=== PATIENT | male | born 1995 | race African-American/Black ===

== ENCOUNTER 2017-05-20 22:25 | Emergency (ER) | payer OTHER ==
[~2017-05-20] VITALS: Ht 160 cm; Wt 59.0 kg
[2017-05-20 22:45] VITALS: BP 115/78
[2017-05-20 23:20] VITALS: BP 115/78
--- NOTE | 2017-05-21 05:56 | Emergency Room Report ---
History of Present Illness General Chief Complaint: General Complaint Source: Patient Present Illness HPI Patient presents with a rash on his penis Denies any fevers or chills denies any itching Denies any pain Patient reports that he was told previously he might have herpes The lesion has been there for the last several days denies any change in size And it is just at the base of the head of the penis Allergies: Coded Allergies: No Known Allergies (Unverified , 05/20/17) Patient History Past Medical History: see triage record Pertinent Family History: none Reviewed Nursing Documentation: PMH: Agreed, PSxH: Agreed Nursing Documentation-PMH Past Medical History: No Stated History Review of Systems All Other Systems: negative except mentioned in HPI Physical Exam Vital Signs Date Time Temp Pulse Resp B/P Pulse Ox O2 Delivery O2 Flow Rate FiO2 05/20/17 22:38 98.1 83 14 115/78 96 Room Air Sp02 EP Interpretation: reviewed, normal General Appearance: well appearing, no apparent distress Head: normocephalic, atraumatic Eyes: bilateral eye EOMI, bilateral eye PERRL ENT: normal pharynx Neck: supple Respiratory: lungs clear Cardiovascular #1: regular rate, rhythm Gastrointestinal: non tender, soft, no mass Genitourinary: other - Circumcised with bilateral testicles descended, just at the lateral aspect of the penis at the congestion of the shaft and the head of the penis there is a small erythematous lesion, appears nonspecific, no obvious blister formation, no streaking or dermatomal fashion Musculoskeletal: normal inspection, back normal Neurologic: alert, oriented x3, responsive Skin: other - as above Lymphatic: no adenopathy Medical Decision Making Diagnostic Impression: Primary Impression: dermatitis ER Course The area in question does not appear to be in line with any obvious STD Patient is encouraged to have appropriate hygiene and follow closely with [facility] Last Vital Signs Date Time Temp Pulse Resp B/P Pulse Ox O2 Delivery O2 Flow Rate FiO2 05/20/17 23:20 98.1 85 14 115/78 96 Room Air Status: unchanged Disposition: HOME, SELF-CARE Condition: Stable Referrals: [facility] (PCP) Patient Instructions: Rash, [id number] Additional Instructions: Patient is provided with the discharge instructions notified to follow up with primary doctor in the next 2-3 days otherwise return to the er with any worsening symptoms. Please note that this report is being documented using [employer] technology. This can lead to erroneous entry secondary to incorrect interpretation by the dictating instrument. RICK BROWN D.O. May 21, 2017 05:56
== END 2017-05-20 23:20 | disposition home or self-care (01) ==
LOC: EMR 23:12
DX: L30.9 Dermatitis, unspecified (principal)
CPT/HCPCS: 99282